=== PATIENT | male | born 1995 | race Two or more races ===

== ENCOUNTER 2016-10-31 15:11 | Day surgery (SDC) | payer OTHER ==
[~2016-10-31] VITALS: Ht 175.3 cm; Wt 74.4 kg
--- NOTE | ~2016-10-31 | HP ---
PATIENT'S NAME: MARIA SY [facility] AGE: 20 Y [address] ROOM: [id number] [place], [place] [address] LOCATION: [facility] ADMIT DATE: 10/31/2016 History & Physical DISCHARGE DATE: FAMILY PHYSICIAN: PHYSICIAN, NO ATTENDING PHYSICIAN: Jerry Lopez DATE OF SERVICE: CHIEF COMPLAINT: Abdominal pain. REVIEW OF RECORD: Maria is a 20-year-old gentleman who works at [employer] who says he has been having some abdominal changes over the last week. He feels a little bloated, he has had a hard time having a bowel movement, he is passing gas. He says he has not had any fevers, chills, no weight loss, no vomiting, he has been eating. He has had no diarrhea now or preceding in the recent past. He has never had this type of sensation before. He does not know if he is around anybody else who has been ill; however, today, working at [employer], he started developing pain and he pointed to McBurney's point in the right lower quadrant. The clinic there sent him to the ER, where Dr. Blanco evaluated him. He was found to be tender in the right lower quadrant, but no guarding. He was afebrile at 97.3. His white count actually returned normal. His urinalysis was unremarkable. He underwent a CT scan, which I reviewed with Dr. Preston, radiologist, there was slight inflammatory changes around the appendix, there was just a little bit of air in it, and it was not extremely dilated. Radiologist interpretation was early acute appendicitis. There appeared to be no evidence of small bowel thickening or abnormality to suggest Crohn's. No evidence of diverticulitis. No free fluid. No free air. No abscess. MEDICATIONS: None. ALLERGIES: NONE. OPERATION: None. SOCIAL HISTORY: Works at [employer]. Does not smoke or drink. Denies drug use. FAMILY HISTORY: Unremarkable for cancer, diabetes, or heart disease, according to the patient, PATIENT'S NAME: MARIA SY [facility] AGE: 20 Y [address] ROOM: [id number] [place], [place] [address] LOCATION: [facility] ADMIT DATE: 10/31/2016 History & Physical DISCHARGE DATE: FAMILY PHYSICIAN: PHYSICIAN, NO ATTENDING PHYSICIAN: Jerry Lopez but he does not know he said. REVIEW OF SYSTEMS: The patient denies any fevers or chills. Denies any change in his vision or hearing. No change in his weight. No thyroid or diabetic conditions. No shortness of breath. No pulmonary contusion. No pulmonary symptoms. Denies any congenital heart defects. Denies any dysuria or hematuria. No swollen joints. PHYSICAL EXAMINATION: GENERAL: The patient is a 20-year-old fit gentleman in mild distress. HEENT: Head is normocephalic. Sclerae are nonicteric. Mucous membranes are dry. NECK: Supple. There is no adenopathy. LUNGS: Clear to auscultation. HEART: Normal sinus rhythm. ABDOMEN: Nondistended, has positive bowel sounds. His maximum point of tenderness is at McBurney's point in the right lower quadrant. He has no rebound. He has slight pain referral from the left lower quadrant and palpation to the right lower quadrant. PELVIS: Stable. He has no evidence of inguinal adenopathy. EXTREMITIES: He has no peripheral edema. IMPRESSION: A 20-year-old gentleman, alert, and cooperative who has a week history of some abdominal bloating and alteration in his bowel habits, possibly the flu, but today developed abdominal pain in the right lower quadrant. He has clinical findings of point tenderness deep at the McBurney's point. It only guards at very deep palpation. He has normal white count and urinalysis. CT scan suggested early appendicitis. I explained to the patient that he may just have the flu with the development of acute appendicitis could be epiploic appendages infarctions, could be inflammatory bowel disease, could be gastroenteritis. We talked about options of discharging him home with being seen tomorrow in followup, possible repeating radiological review if clinical exam is unchanged. We talked about laparoscopy and laparoscopic appendectomy. The procedure, benefits, and risks, including, but not limited to abdominal wall hernia, bleeding requiring blood transfusion or reoperation, hollow viscus injury, ureter injury, postop abscess, pulmonary or cardiac complications, and loss of life. After our discussion, the patient wishes to proceed with laparoscopy and appendectomy. Thank you very much for allowing me to participate in his care. PATIENT'S NAME: [facility] AGE: 20 Y [address] ROOM: [address] [address] LOCATION: [facility] ADMIT DATE: 10/31/2016 History & Physical DISCHARGE DATE: FAMILY PHYSICIAN: FRANCISCO PRECIADO ATTENDING PHYSICIAN: Jerry Lopez MD DONNA MCKEES/modl /[id number] D: [id number] T: [id number] HISTORY & PHYSICAL
--- NOTE | ~2016-10-31 | ER ---
PATIENT'S NAME: MARIA SY [facility] AGE: 20 Y [address] ROOM: [place] [address] LOCATION: [facility] [place] ADMIT DATE: 10/31/2016 ER/Outpatient Report DISCHARGE DATE: FAMILY PHYSICIAN: PHYSICIAN, NO ATTENDING PHYSICIAN: Jerry Lopez Time of arrival: 1511 hours. Time of evaluation: 1515 hours. CHIEF COMPLAINT: Abdominal pain. HISTORY OF PRESENT ILLNESS: The patient is a 20-year-old male, who presents to the emergency department today with the chief complaint of abdominal pain. He reports this started about one week ago and it is progressively worsening. He has a dull pain in the right lower quadrant. He denies any nausea, vomiting, or diarrhea. He does have some urinary urgency and painful urination. He does have some constipation as well. He denies any fevers or chills. It is dull pain, currently 0/10 in severity, worse with pressure. PAST MEDICAL HISTORY: None. PAST SURGICAL HISTORY: None. SOCIAL HISTORY: The patient denies any tobacco, alcohol, or illicit drug use. Does have multiple partners. ALLERGIES: NO KNOWN DRUG ALLERGIES. MEDICATIONS: None. PRIMARY CARE DOCTOR: The clinic at his work. REVIEW OF SYSTEMS: All systems are reviewed by myself and are negative with the exception of those discussed in HPI and past medical history. PHYSICAL EXAMINATION: PATIENT'S NAME: MARIA SY [facility] AGE: 20 Y [address] ROOM: [place] [address] LOCATION: [facility] ADMIT DATE: 10/31/2016 ER/Outpatient Report DISCHARGE DATE: FAMILY PHYSICIAN: PHYSICIAN, NO ATTENDING PHYSICIAN: Jerry Lopez VITAL SIGNS: Weight 73 kg. Blood pressure 119/71, pulse 70, respiratory rate 16, temperature 97.3, oxygen saturation 98% on room air. GENERAL: The patient is a 20-year-old male, who appears stated age, in mild acute distress. HEENT: Head is normocephalic and atraumatic. Pupils are equal, round, and reactive to light and accommodation. Extraocular motions are intact. Nares are patent bilaterally. TMs are clear. Oral pharynx is clear. NECK: Supple. There is no nuchal rigidity. CARDIOVASCULAR: Regular rate and rhythm. No murmurs, rubs, or gallops. LUNGS: Clear to auscultation bilaterally. No wheezes, rales, or rhonchi. ABDOMEN: Soft with mild tenderness to palpation to the right lower quadrant. There is no rebound, rigidity, or guarding. Positive bowel sounds. MUSCULOSKELETAL: The patient moves all 4 extremities. 5/5 muscle strength. SKIN: Warm and dry. There is no rashes or lesions noted. LABORATORY DATA AND X-RAYS: Labs and x-rays are obtained. CBC is unremarkable. CMP is unremarkable. LFTs are normal. Lipase is normal. Urinalysis is negative. CT scan of the abdomen and pelvis is obtained and have discussed the results with the radiologist. There is some mild attenuation in the mesentry around appendix, which could reflect in early appendicitis. There is no appendicolith. There is no appendix dilation or periappendiceal abscess noted. There is no free air or bowel obstruction noted. IMPRESSION: 1. Early acute appendicitis. 2. Initial visit. EMERGENCY DEPARTMENT COURSE: The patient brought back to the examination. Seen and evaluated by myself. IV is established. Laboratory analysis and imaging are obtained as described above. Results are obtained. I have discussed results with the patient. I have contacted Dr. Lopez, the general surgeon on-call. He has seen and evaluated the patient down here in the ED department. He has discussed different options with the patient. After discussion the patient will proceed to the operating room for laparoscopic appendectomy. Please see Dr. Lopez's dictation. DO CK ESQUEDA/arnoldl PATIENT'S NAME: MARIA SY [facility] AGE: 20 Y [address] ROOM: [address] [address] LOCATION: [facility] ADMIT DATE: 10/31/2016 ER/Outpatient Report DISCHARGE DATE: FAMILY PHYSICIAN: PHYSICIAN, NO ATTENDING PHYSICIAN: Jerry Lopez /[id number] d: 11/01/16 1245 t: 11/12/16 1233, OUTPATIENT REPORT
--- NOTE | ~2016-10-31 | OR ---
PATIENT'S NAME: MARIA SY [facility] AGE: 20 Y [address] ROOM: [address] [address] LOCATION: [facility] [place] ADMIT DATE: 10/31/2016 OR/Procedure Report DISCHARGE DATE: FAMILY PHYSICIAN: PHYSICIAN, NO ATTENDING PHYSICIAN: Gely Corey SURGEON: Gely Corey MD SHOE CASER: DATE OF PROCEDURE: 10/31/2016 PREOPERATIVE DIAGNOSIS: Early acute appendicitis. POSTOPERATIVE DIAGNOSIS: Early acute appendicitis. PROCEDURE: Laparoscopic appendectomy. ANESTHESIA: General with 12 mL of 0.5% Marcaine with epinephrine. SPECIMEN: Appendix with early acute inflammatory changes. INDICATIONS: The patient is a 20-year-old gentleman who has had some abdominal almost GI like symptoms over the last week; today, however, it changed, he developed pain in the right lower quadrant. No fevers, chills, no diarrhea, some obstipation noted. No dysuria or hematuria. He has had normal white count, but Dr. Blanco performed a CAT scan, he was tender on McBurney's point and that is where he pointed with one finger. CT review with Dr. Preston, radiologist, showed early inflammatory changes around a mildly dilated appendix. We gave him the options of 24-hour observation versus laparoscopy with appendectomy. He agreed to proceed with operative intervention. DESCRIPTION OF PROCEDURE: After informed consent, the patient was taken to the operating room, and after general endotracheal anesthesia, the patient's abdomen was prepped and draped into a sterile field. Local anesthetic infiltrated prior to each incision and the first one made below the umbilicus carried down to identify the anterior fascia. There was a small umbilical hernia with properitoneal fat incarcerated in it. We actually excised the fat and reduced the fat and used this preexisting fascia defect for our 5-mm trocar. We created pneumoperitoneum and placed a 5-mm trocar in the right upper quadrant and a 12-mm in the suprapubic area. We identified the appendix, it had a little bit of exudative process on top of it, it was firm in the distal 1/3rd. It was consistent with early appendicitis. There was no evidence of terminal ileitis. No evidence of infarcted epiploic appendages. The colon was soft. We elevated up the appendix and made a window at the base of it and so we could place an Endo-NEVAEH 35 across the mesoappendix and divided it. We divided the appendiceal stump with Endo-NEVAEH 35 as well. We placed the appendix into an EndoCatch bag and brought it out through the 12-mm incision. PATIENT'S NAME: MARIA SY [facility] AGE: 20 Y [address] ROOM: [place] [address] LOCATION: [facility] [place] ADMIT DATE: 10/31/2016 OR/Procedure Report DISCHARGE DATE: FAMILY PHYSICIAN: PHYSICIAN, NO ATTENDING PHYSICIAN: Gely Corey We irrigated, it was clear, staple lines intact, we removed the trocars, repaired the umbilical fascial defect and the 12 mm fascia defect with 0 Vicryl, the skin closed with subcuticular 4-0 Vicryl. Steri-Strips, sterile dressings applied. The patient tolerated the procedure well and transferred to recovery in stable condition. GELY COREY MD [facility]/modl /[id number] d: 11/01/16 0040 t: 11/07/16 1747, OPERATIVE SUMMARY
[2016-10-31 15:40] LABS: BASOPHIL % 0.3 %; EOSINOPHIL # 0.1 K/uL (0.0-0.5); EOSINOPHIL % 2.2 %; HEMATOCRIT 45.9 % (37.0-53.0); HEMOGLOBIN 15.4 g/dL (12.0-17.0); LYMPHOCYTE # 2.4 K/uL (0.8-4.0); LYMPHOCYTE % 40.6 %; MCH 28.9 pg (27.0-34.0); MCHC 33.6 gm/dL (32.0-36.5); MCV 86.3 fl (83.0-98.0); MONOCYTE # 0.4 K/uL (0.0-1.0); MONOCYTE % 7.3 %; NEUTROPHIL # (ANC) 2.9 K/uL (1.4-9.0); NEUTROPHIL % 49.6 %; NRBC % 0 /100WBC (0-0.00); PLATELET COUNT 189 K/uL (150-450); RBC 5.32 M/uL (4.00-6.00); RDW-CV 12.1 % (11.9-14.6); WBC 5.9 K/uL (4.0-11.0)
[2016-10-31 15:56] LABS: ALBUMIN 3.9 gm/dL (3.5-5.0); ALK PHOS 86 IU/L (33-138); ALT 55 IU/L (12-78); ANION GAP 11.1 (10.0-19.0); AST 25 IU/L (10-40); BLOOD UREA NITROGEN 12 mg/dL (6-24); CALCIUM 8.5 mg/dL (8.5-10.5); CHLORIDE 106 mMol/L (96-110); CO2 27 mMol/L (22-32); CREATININE 0.8 mg/dL (0.6-1.3); ESTIMATED GFR (MDRD EQUATION) > 60; POTASSIUM 4.1 mMol/L (3.7-5.1); SODIUM 140 mMol/L (135-145); TOTAL BILIRUBIN 0.5 mg/dL (0.0-1.5); TOTAL PROTEIN 7.8 g/dL (6.0-8.4)
[2016-10-31 16:29] LABS: BILIRUBIN URINE NEGATIVE (NEGATIVE); BLOOD URINE NEGATIVE /UL (NEGATIVE); COLOR URINE YELLOW (YELLOW); GLUCOSE URINE NEGATIVE (NEGATIVE); KETONE URINE NEGATIVE (NEGATIVE); LEUKOCYTES URINE NEGATIVE /UL (NEGATIVE); NITRITE URINE NEGATIVE (NEGATIVE); PROTEIN URINE NEGATIVE (NEGATIVE); TURBIDITY URINE CLEAR (CLEAR); UROBILINOGEN URINE NORMAL (NORMAL)
--- NOTE | 2016-11-01 02:04 | NUR ---
PT ADMITTED TO FLOOR AT 2030, DENIES PAIN UPON ARRIVAL, PT HAS FLUIDS RUNNING AT 100ML/HR. 3 LAP SITES TO ABDOMEN, WITH BENZO,SS,GAUZE AND TEGADERM IN PLACE. WALKS FROM SURGICAL BED TO ROOM BED WITH NO COMPLICATIONS. FAMILY WITH PT. FOOT PUMPS IN PLACE UPON ARRIVCAL WELL. PT ALERT AND ORIENTED X3.
--- NOTE | 2016-11-01 03:52 | NUR ---
Significant Event:pt continued to rest well remainder of the shift. up to bathroom 5x walks in halls 2 times with no complications noted. dressing to mid and lower abdomen changed at 0115, bloody drainage noted. iv fluids discontinued at 0230, pt tolerating liquids with no complications. pt vss, afebrile. resp even unlabored remains on room air. bowel sounds very rare,pt is not passing gas yet.pt alert and orientedx4. morphine at 0030. up with stand by assist. uses call light approp. iv to left hand sl. Follow up:
[2016-11-01] MEDS ORDERED: NORCO 5-325 TA1 EACH PO (08:27)
--- NOTE | 2016-11-01 12:08 | NUR ---
DISCHARGE: Pt. was educated on discharge instructions, lap nadir d/c instructions, and new medication: norco. Verbalized understanding, no questions or concerns. Left with all belongings and prescriptions. Order written for work leave. Walked to front door by aide and driven home by family member. IV removed by primary nurse.
--- NOTE | 2016-11-01 12:30 | NUR ---
DISMISSED PER PEDIS TO CAR ACCOMPANIED BY PHARMACEUTICAL WORKER & UNCLE AFTER RECIEVING DISCHARGE INSTRUCTIONS FROM VIRTUAL NURSE & PAPERS WERE GIVEN.
== END 2016-11-01 12:30 | disposition disaster alternative care site (69) ==
LOC: GMED 15:11 → GSDC 18:41 → GMSU 18:41 → GSDC 11-01 12:30
PROVIDERS: Emergency Medicine
PROC: 0DTJ4ZZ Resection of Appendix, Percutaneous Endoscopic Approach (ICD-10-PCS; principal; 2016-10-31)
DX: K38.1 Appendicular concretions (principal)
CPT/HCPCS: J0694; J1885; J2270; J7030; J7120; Q9967

== ENCOUNTER 2016-12-26 02:06 | Emergency (ER) | payer OTHER ==
--- NOTE | ~2016-12-26 | ER ---
PATIENT'S NAME: MARIA SEALS [facility] AGE: 21 Y [address] ROOM: [place] [address] LOCATION: [facility] ADMIT DATE: 12/26/2016 ER/Outpatient Report DISCHARGE DATE: 12/26/2016 FAMILY PHYSICIAN: PHYSICIAN, NO ATTENDING PHYSICIAN: Adrián Blanco Time of Arrival: 0206 hours. Time of Evaluation: 0215 hours. CHIEF COMPLAINT: Right index finger laceration. HISTORY OF PRESENT ILLNESS: The patient is a 21-year-old male, who presents to the emergency department today with a chief complaint of laceration to his right index finger. He reports that occurred at 1700 hours the day before. He reports he was using a machine cut with a metal. It is sharp pain. It is currently 9/10 in severity. Worse with movement. His tetanus is not up-to-date. PAST MEDICAL HISTORY: None. PAST SURGICAL HISTORY: None. SOCIAL HISTORY: The patient periodically smokes. Denies any alcohol or illicit drug use. ALLERGIES: NO KNOWN DRUG ALLERGIES. MEDICATIONS: None. PRIMARY CARE DOCTOR: None. REVIEW OF SYSTEMS: All systems are reviewed by myself and are negative with the exception of those discussed in HPI and past medical history. PHYSICAL EXAMINATION: VITAL SIGNS: Weight is 73.7 kg, blood pressure 126/82, pulse 84, respiratory rate 16, temperature 98.4, oxygen saturation 98% on room air. GENERAL: The patient is a 21-year-old male, who appears stated age, in no PATIENT'S NAME: MARIA SEALS [facility] AGE: 21 Y [address] ROOM: [place] [address] LOCATION: [facility] ADMIT DATE: 12/26/2016 ER/Outpatient Report DISCHARGE DATE: 12/26/2016 FAMILY PHYSICIAN: PHYSICIAN, NO ATTENDING PHYSICIAN: Adrián Blanco acute distress. Well-developed, well-nourished. HEENT: Normocephalic, atraumatic. CARDIOVASCULAR: Regular rate and rhythm. No murmurs, rubs, or gallops. LUNGS: Clear to auscultation bilaterally. No wheezes, rales, or rhonchi. ABDOMEN: Soft, nontender, and nondistended. No rebound, rigidity, or guarding. MUSCULOSKELETAL: The patient has full range of motion of his finger. SKIN: The patient has a 1.0 cm laceration to the index finger at the DIP joint. LABORATORY DATA AND X-RAYS: X-ray of the right hand is obtained. There is no evidence of foreign body or bony injury noted. IMPRESSION: 1. Acute 1.0 cm laceration to the right index finger with suture simple repair. 2. Initial visit. EMERGENCY DEPARTMENT COURSE: The patient was brought back to the examination room. Seen and evaluated by myself. Imaging is obtained as described above. I have discussed the results with the patient and his uncle who was at the bedside. I have discussed risks and benefits of suture repair. The patient does wish to proceed. A 1% lidocaine without epinephrine is used for local infiltration. The area is copiously irrigated with normal saline. Two 5-0 Ethilon sutures are placed with good cosmesis and good hemostasis. I have discussed suture removal in 7 to 10 days. I have discussed return to care instructions including worsening symptoms or any other concerns to return to the emergency department as soon as possible. The patient is agreeable without further questions at this time. DISPOSITION: The patient was discharged home in good condition. DO CK ESQUEDA/ne /[id number] d: 12/26/168 t: 12/26/161911, OUTPATIENT REPORT
[~2016-12-26 02:06] MED LIST: NORCO 5-325 TA1 EACH PO
== END 2016-12-26 02:50 | disposition disaster alternative care site (69) ==
LOC: GACC 02:06
PROC: 0HQFXZZ Repair Right Hand Skin, External Approach (ICD-10-PCS; principal; 2016-12-26)
DX: S61.210A Laceration without foreign body of right index finger without damage to nail, initial encounter (principal); F17.200 Nicotine dependence, unspecified, uncomplicated; Z23 Encounter for immunization; W26.9XXA Contact with unspecified sharp object(s), initial encounter